=== PATIENT | female | born 1970 | race Caucasian/White ===

== ENCOUNTER → 2017-08-10 | Outpatient (CLI) | payer OTHER ==
[~2017-08-10] MED LIST: ALBUTEROL SULF8.5 GM IH; AMOX TR-K CLV1 EAC4 PO; FLEXERIL10 MG PO; FLONASE16 G1 BOTH NARES; GEMFIBROZIL600 MG PO; LEVOTHYROXINE200 MC1 PO; LISINOPRIL20 MG PO; LYRICA75 MG PO; METHADONE10 MG PO; PERCOCET 5/31 TABLET PO; PREDNISONE20 MG PO; PRENATAL1 EACH PO; PRINIVIL20 MG PO; STOOL SOFTENER100 MG PO; SYNTHROID PO; TRAMADOL HCL50 MG PO; ZITHROMAX Z-PA250 MG PO
== END | disposition home or self-care (01) ==
LOC: CDC 11:47
DX: Z01.810 Encounter for preprocedural cardiovascular examination (principal); G56.01 Carpal tunnel syndrome, right upper limb; R94.31 Abnormal electrocardiogram [ECG] [EKG]
CPT/HCPCS: 93000